=== PATIENT | male | born 1965 | race Caucasian/White ===

== ENCOUNTER 2022-07-20 17:39 | Emergency (ER) | payer OTHER ==
[~2022-07-20] VITALS: Ht 167.6 cm; Wt 65.8 kg
[~2022-07-20 17:39] MED LIST: ACET500; AMOCLA875 PO; Bactrim Ds Tab1 EACH PO; CIME300; CIPR500 PO; FURO20 PO; LOPE2C; OXYACE5T PO; POTCHL20ER PO; RXTRAM50 PO; Sudogest60 MG PO; TRAM50 PO
[2022-07-20 18:17] LABS: BASOPHILS ABSOLUTE AUTO 0.05 K/mm3 (0.00-0.23); BASOPHILS PERCENT AUTO 1 % (0-2); EOSINOPHILS ABSOLUTE AUTO 0.06 K/mm3 (0.00-0.68); EOSINOPHILS PERCENT AUTO 1 % (0-6); Hematocrit 41.4 % (37.0-53.0); Hemoglobin 14.2 g/dL (13.5-17.5); IMMATURE GRAN ABSOLUTE AUTO 0.01 K/mm3 (0.00-0.10); IMMATURE GRAN PERCENT AUTO 0 % (0-1); LYMPHOCYTES ABSOLUTE AUTO 1.46 K/mm3 (0.84-5.20); LYMPHOCYTES PERCENT AUTO 20 % (21-46); MONOCYTES ABSOLUTE AUTO 0.65 K/mm3 (0.16-1.47); MONOCYTES PERCENT AUTO 9 % (4-13); Mean Corpuscular HGB 31.1 pg (26.0-34.0); Mean Corpuscular HGB Conc 34.3 g/dL (31.5-36.5); Mean Corpuscular Volume 91 fL (80-100); Mean Platelet Volume 9.3 fL (9.1-12.4); NEUTROPHILS ABSOLUTE AUTO 4.95 K/mm3 (1.96-9.15); NEUTROPHILS PERCENT AUTO 69 % (41-73); Platelet Count 244 K/mm3 (150-400); RDW Coefficient Variation 12.6 % (11.7-14.2); RDW Standard Deviation 41.9 fL (35.1-46.3); Red Blood Cell Count 4.56 M/mm3 (4.30-5.90); White Blood Cell Count 7.18 K/mm3 (4.00-11.30)
[2022-07-20 18:41] LABS: Albumin, Blood 3.9 g/dL (3.4-5.0); Albumin/Globulin Ratio 1.1 (0.8-1.8); Bun/Creatinine Ratio 14.9 (12.0-20.0); Calcium, Blood 9.3 mg/dL (8.5-10.1); Creatinine, Blood 1.21 mg/dL (0.60-1.20); Globulin, Blood 3.6 g/dL (2.2-4.0); Potassium, Blood 3.9 mmol/L (3.5-5.5); Total Protein, Blood 7.5 g/dL (6.4-8.2)
[2022-07-20] MEDS ORDERED: HYDCHL25 PO (19:54)
[2022-07-20 20:00] VITALS: BP 150/101
== END 2022-07-20 20:05 | disposition home or self-care (01) ==
LOC: ER 17:39
PROVIDERS: Physician Assistant
DX: I10 Essential (primary) hypertension (principal); J45.909 Unspecified asthma, uncomplicated; Z90.49 Acquired absence of other specified parts of digestive tract; Z98.890 Other specified postprocedural states; Z88.6 Allergy status to analgesic agent
CPT/HCPCS: 71046; 80053; 84484; 85025; 93005; 93010

== ENCOUNTER → 2023-01-11 | Outpatient (CLI) | payer OTHER ==
[~2023-01-11] MED LIST changes: +HYDCHL25 PO
[2023-01-11 16:15] LABS: Campylobacter Sp Not Detected (NOT DETECT)
[2023-01-11 16:16] LABS: Adenovirus F 40/41 Not Detected (NOT DETECT); Astrovirus Not Detected (NOT DETECT); Cryptosporidium Not Detected (NOT DETECT); Cyclospora Cayetanensis Not Detected (NOT DETECT); E. Coli O157 Not Detected (NOT DETECT); Entamoeba Histolytica Not Detected (NOT DETECT); Enteroaggregative E. coli-EAEC Not Detected (NOT DETECT); Enteropathogenic E. coli-EPEC Not Detected (NOT DETECT); Enterotoxigenic E. coli-ETEC Not Detected (NOT DETECT); Giardia Lamblia Not Detected (NOT DETECT); Norovirus GI/GII Not Detected (NOT DETECT); Plesiomonas Shigelloides Not Detected (NOT DETECT); Rotavirus A Detected (NOT DETECT); Salmonella Sp Not Detected (NOT DETECT); Sapovirus Not Detected (NOT DETECT); Shiga Toxin-prod E. coli-STEC Not Detected (NOT DETECT); Shigella/Enteroin E. coli-EIEC Not Detected (NOT DETECT); Vibrio Cholerae Not Detected (NOT DETECT); Vibrio Sp Not Detected (NOT DETECT); Yersinia Enterocolitica Not Detected (NOT DETECT)
[2023-01-16 00:34] LABS: CALPROTECTIN,FECAL 356 ug/g (<=49)
== END ==
LOC: LAB 07:30 → LAB SHORT 07:30
PROVIDERS: Physician Assistant Medical
DX: R19.7 Diarrhea, unspecified (principal)
CPT/HCPCS: 83993; 87324; 87507

== ENCOUNTER 2023-03-20 10:50 | Day surgery (SDC) | payer OTHER ==
[~2023-03-20 10:50] MED LIST changes: +DICY20 PO; +HYDROCHLOROTH12.5 MG PO; +LOPE2C PO; +Lactated Ringer's 0 ML IV ONE; +ONDA4 PO; +PRED20 PO; +PROTONIX4010 PO; +propofoL 0 ML IV ONE
[2023-03-20 11:37] VITALS: BP 139/80
--- NOTE | 2023-03-20 15:17 | NUR ---
03/20/23 1517 Pj Morris AFTER ANESTHESIA REVIEWED THE PATIENTS CHART THE CASE WAS CANCELLED BY ANESTHESIA. PATIENT WAS SCHEDULED TO GET AN ECHO DONE BUT HAS NOT DONE THAT YET. PATIENT WAS VERY SHORT OF BREATH JUST WALKING TO THE ROOM. DR URIARTE TALKED TO PATIENT AND TOLD HIM TO CALL AND SCHEDULE HIS ECHO TODAY AND CALL HIS OFFICE TO RESCHEDULE HIS COLONOSCOPY.
== END 2023-03-20 12:00 | disposition home or self-care (01) ==
LOC: ORSCSDS 10:50
DX: R19.7 Diarrhea, unspecified (principal); Z53.9 Procedure and treatment not carried out, unspecified reason
CPT/HCPCS: J2704; J7120